=== PATIENT | female | born 1970 | race Caucasian/White ===

== ENCOUNTER 2017-10-07 20:23 | Emergency (ER) | payer SELFPAY ==
[~2017-10-07] VITALS: Ht 157.5 cm; Wt 111.0 kg
[~2017-10-07 20:23] MED LIST: ATENOLOL; [UNRECOGNIZED DRUG - OTHER]
[2017-10-08] MEDS ORDERED: KETOROLAC 60MG/2ML VIAL IM STA (00:22)
[2017-10-08 01:58] VITALS: BP 169/94
== END 2017-10-08 01:58 | disposition home or self-care (01) ==
LOC: ER 20:23
DX: M54.5 Low back pain (principal); M54.30 Sciatica, unspecified side; M25.561 Pain in right knee; M17.11 Unilateral primary osteoarthritis, right knee; I10 Essential (primary) hypertension; J45.909 Unspecified asthma, uncomplicated
CPT/HCPCS: 73562; 96372; 99284; J1885; Z7610

== ENCOUNTER 2018-10-24 17:19 | Emergency (ER) | payer MEDICAID ==
[~2018-10-24] VITALS: Ht 160 cm; Wt 112.0 kg
[2018-10-24] MEDS ORDERED: KETOROLAC 60MG/2ML VIAL IM ONE (19:00)
[2018-10-24] MEDS ORDERED: HYDROCODONE/ACETAMINOPHEN 10/325MG TABLET PO ONE (19:00)
[2018-10-24] MEDS ORDERED: CLONIDINE 0.2MG TABLET PO ONE (20:30)
[2018-10-24 21:03] VITALS: BP 148/65
== END 2018-10-24 21:38 | disposition home or self-care (01) ==
LOC: ER 17:19
DX: S80.01XA Contusion of right knee, initial encounter (principal); S90.31XA Contusion of right foot, initial encounter; I10 Essential (primary) hypertension; W01.0XXA Fall on same level from slipping, tripping and stumbling without subsequent striking against object, initial encounter; Y93.9 Activity, unspecified; Y92.009 Unspecified place in unspecified non-institutional (private) residence as the place of occurrence of the external cause
CPT/HCPCS: 73562; 73590; 73610; 73630; 96372; 99283; J1885; L1830; Z7610

== ENCOUNTER 2019-07-07 02:55 | Inpatient (IN) | payer OTHER, MEDICAID ==
[~2019-07-07] VITALS: Ht 157.5 cm; Wt 121.8 kg
[2019-07-07 03:42] LABS: BASOPHILS % 0.4 % (0.0-2.0); EOSINOPHILS % 1.6 % (0.0-5.0); HEMATOCRIT. 39.9 % (36.0-48.0); HEMOGLOBIN. 13.4 g/dL (12.0-16.0); LYMPHOCYTES % 32.3 % (20.0-50.0); MEAN CORPUSCULAR HEMOGLOBIN 28.9 pg (28.0-32.0); MEAN CORPUSCULAR VOLUME 86.4 fL (81.0-99.0); MEAN PLATELET VOLUME 9.4 fl (7.4-10.4); MONOCYTES % 3.4 % (2.0-8.0); NEUTROPHILS % 62.3 % (40.0-76.0); PLATELET 298 x1000/uL (130-400); RED BLOOD CELL COUNT 4.62 mill/uL (4.2-5.4); RED CELL DISTRIBUTION WIDTH 13.5 % (11.6-14.6)
[2019-07-07] MEDS ORDERED: CLONIDINE 0.2MG TABLET PO ONE (03:45)
[2019-07-07] MEDS ORDERED: ASPIRIN 81MG TABLET PO ONE (03:45)
[2019-07-07] MEDS ORDERED: LORAZEPAM 2MG/ML CPJ IV ONE (03:45)
[2019-07-07] MEDS ORDERED: ALPRAZOLAM 0.5 MG TABLET PO ONE (03:45)
[2019-07-07 03:49] LABS: CHLORIDE 106 mEq/L (98-107)
[2019-07-07] MEDS ORDERED: LABETALOL 5MG/ML SYR 20 MG/4 ML SYRINGE IV ONE (05:30)
[2019-07-07 08:45] VITALS: BP 128/69
[2019-07-07 08:46] VITALS: BP 128/69
[2019-07-07 12:00] VITALS: BP 142/62
[2019-07-07] MEDS ORDERED: GABA-529 MT (12:39)
[2019-07-07] MEDS ORDERED: METF-414 MT (12:39)
[2019-07-07] MEDS ORDERED: CRES10 MT (12:39)
[2019-07-07] MEDS ORDERED: LISI40TA4 MT (12:39)
[2019-07-07] MEDS ORDERED: IPRATROPIUM/ALBUTEROL 0.5-3(2.5)MG/3ML NEB HHN PRN (15:15)
[2019-07-07 16:00] VITALS: BP 157/78
[2019-07-07] MEDS ORDERED: NITROGLYCERIN 0.4MG TABLET SL SL PRN (16:30)
[2019-07-07] MEDS ORDERED: HYDRALAZINE 20MG/ML VIAL IV PRN (16:30)
[2019-07-07] MEDS ORDERED: ONDANSETRON HCL 4MG/2ML INJ IV PRN (16:30)
[2019-07-07] MEDS ORDERED: CLONIDINE 0.1MG TABLET PO PRN (16:30)
[2019-07-07] MEDS ORDERED: ACETAMINOPHEN 325MG TABLET PO PRN (16:30)
[2019-07-07] MEDS ORDERED: ATORVASTATIN CALCIUM 40MG TABLET PO NR (17:30)
[2019-07-07] MEDS ORDERED: DEXTROSE 50% WATER 50ML SYRINGE IV PRN (19:15)
[2019-07-07 20:00] VITALS: BP 146/64
[2019-07-07] MEDS: HEPARIN 5000 UNITS/ML VIAL SUBCUT SCH (20:51)
[2019-07-07] MEDS: INSULIN LISPRO 100 UNITS/ML SUBCUT SCH (21:00)
[2019-07-07] MEDS: BLOOD SUGAR DIAGNOSTIC STRIP TEST SCH (21:07)
[2019-07-07 23:20] LABS: *AMPHETAMINES SCREEN URINE NEGATIVE (NEGATIVE); *BARBITURATES SCREEN URINE NEGATIVE (NEGATIVE); *BENZODIAZEPINES SCREEN URINE NEGATIVE (NEGATIVE); *COCAINE SCREEN URINE NEGATIVE (NEGATIVE)
[2019-07-07 23:21] LABS: CANNABINOID URINE SCREEN NEGATIVE (NEGATIVE); METHADONE URINE SCREEN NEGATIVE (NEGATIVE); OPIATES URINE SCREEN NEGATIVE (NEGATIVE); PHENCYCLIDINE URINE SCREEN NEGATIVE (NEGATIVE)
[2019-07-08] VITALS (7 sets, daily range): BP systolic 138–161; BP diastolic 65–79
[2019-07-08 05:48] LABS: CHLORIDE 104 mEq/L (98-107)
[2019-07-08 05:56] LABS: LDL CHOLESTEROL 88 mg/dL (5-100)
[2019-07-08 06:00] LABS: HDL CHOLESTEROL 40 mg/dL (40-59)
[2019-07-08] MEDS: BLOOD SUGAR DIAGNOSTIC STRIP TEST SCH ×4 (06:01→21:26)
[2019-07-08 06:13] LABS: BASOPHILS % 0.4 % (0.0-2.0); EOSINOPHILS % 1.5 % (0.0-5.0); HEMATOCRIT. 40.1 % (36.0-48.0); HEMOGLOBIN. 13.6 g/dL (12.0-16.0); LYMPHOCYTES % 24.3 % (20.0-50.0); MEAN CORPUSCULAR HEMOGLOBIN 29.5 pg (28.0-32.0); MEAN CORPUSCULAR VOLUME 86.7 fL (81.0-99.0); MONOCYTES % 2.9 % (2.0-8.0); NEUTROPHILS % 70.9 % (40.0-76.0); PLATELET 294 x1000/uL (130-400); RED BLOOD CELL COUNT 4.62 mill/uL (4.2-5.4); RED CELL DISTRIBUTION WIDTH 13.8 % (11.6-14.6)
[2019-07-08] MEDS: INSULIN LISPRO 100 UNITS/ML SUBCUT SCH ×4 (06:21→21:00)
[2019-07-08] MEDS: HEPARIN 5000 UNITS/ML VIAL SUBCUT SCH ×2 (09:50→21:27)
[2019-07-08] MEDS ORDERED: AMLO5TAB88 MT (16:08)
[2019-07-08] MEDS ORDERED: SITA100T11 MT (16:10)
[2019-07-08] MEDS ORDERED: AMLODIPINE 5MG TABLET PO SCH (16:15)
[2019-07-08] MEDS ORDERED: ATORVASTATIN CALCIUM 10MG TABLET PO SCH (21:00)
[2019-07-08] MEDS: LISINOPRIL 20MG TABLET PO SCH (21:25)
[2019-07-09 04:00] VITALS: BP 143/70
[2019-07-09 06:11] LABS: BASOPHILS % 0.4 % (0.0-2.0); EOSINOPHILS % 1.4 % (0.0-5.0); HEMATOCRIT. 41.4 % (36.0-48.0); HEMOGLOBIN. 13.7 g/dL (12.0-16.0); LYMPHOCYTES % 23.2 % (20.0-50.0); MEAN CORPUSCULAR HEMOGLOBIN 28.6 pg (28.0-32.0); MEAN CORPUSCULAR VOLUME 86.7 fL (81.0-99.0); MEAN PLATELET VOLUME 9.7 fl (7.4-10.4); MONOCYTES % 3.8 % (2.0-8.0); NEUTROPHILS % 71.2 % (40.0-76.0); PLATELET 296 x1000/uL (130-400); RED BLOOD CELL COUNT 4.78 mill/uL (4.2-5.4); RED CELL DISTRIBUTION WIDTH 14.1 % (11.6-14.6)
[2019-07-09] MEDS: BLOOD SUGAR DIAGNOSTIC STRIP TEST SCH (06:14)
[2019-07-09] MEDS: INSULIN LISPRO 100 UNITS/ML SUBCUT SCH (06:30)
[2019-07-09 06:42] LABS: CHLORIDE 103 mEq/L (98-107)
[2019-07-09 07:58] VITALS: BP 176/85
[2019-07-09] MEDS: LISINOPRIL 20MG TABLET PO SCH (09:13)
[2019-07-09] MEDS: HEPARIN 5000 UNITS/ML VIAL SUBCUT SCH (09:14)
[2019-07-09] MEDS ORDERED: AMLODIPINE 5MG TABLET PO SCH (09:30)
[2019-07-09 10:57] VITALS: BP 163/88
[2019-07-09] MEDS ORDERED: AMLO5TAB88 PO (12:08)
[2019-07-09] MEDS ORDERED: HYDR-4134 MT (12:08)
[2019-07-09] MEDS ORDERED: HYDRALAZINE HCL 25MG TABLET PO SCH (14:00)
== END 2019-07-09 12:30 | disposition home or self-care (01) | DRG 189 ==
LOC: ER 02:55 → 7EST 05:35 → ENRESERV 07:39 → EDBEDREQ 08:09 → 7WST 07-08 23:05
PROVIDERS: ADMIT Internal Medicine; ATTEND Internal Medicine
DX: J96.00 Acute respiratory failure, unspecified whether with hypoxia or hypercapnia (principal); I16.1 Hypertensive emergency; Z68.42 Body mass index [BMI] 45.0-49.9, adult; I10 Essential (primary) hypertension; E11.9 Type 2 diabetes mellitus without complications; I20.9 Angina pectoris, unspecified; R79.89 Other specified abnormal findings of blood chemistry; R07.89 Other chest pain; E66.01 Morbid (severe) obesity due to excess calories; E78.5 Hyperlipidemia, unspecified; Z98.891 History of uterine scar from previous surgery; Z87.891 Personal history of nicotine dependence; Z86.73 Personal history of transient ischemic attack (TIA), and cerebral infarction without residual deficits; Z90.722 Acquired absence of ovaries, bilateral
CPT/HCPCS: 36415; 71045; 80053; 80061; 80305; 82728; 82962; 83036; 83605; 83615; 83735; 83880; 84145; 84484; 85025; 85379; 86140; 87635; 87804; 93005; 93306; 99291; J1644; J1815; J3490; U0002

== ENCOUNTER 2020-04-10 05:17 | Emergency (ER) | payer MEDICAID, OTHER ==
[~2020-04-10] VITALS: Ht 157.5 cm; Wt 110.0 kg
[~2020-04-10 05:17] MED LIST changes: +AMLO5TAB88 PO; -ATENOLOL; +CRES10 MT; +GABA-529 MT; +HYDR-4134 MT; +LISI40TA4 MT; +METF-414 MT; +SITA100T11 MT; -[UNRECOGNIZED DRUG - OTHER]
[2020-04-10 08:08] LABS: CHLORIDE 100 mEq/L (98-107)
[2020-04-10 08:38] LABS: BASOPHILS % 0.2 % (0.0-2.0); EOSINOPHILS % 0.1 % (0.0-5.0); HEMATOCRIT. 43.3 % (36.0-48.0); LYMPHOCYTES % 19.6 % (20.0-50.0); MEAN CORPUSCULAR VOLUME 83.5 fL (81.0-99.0); MEAN PLATELET VOLUME 10.4 fl (7.4-10.4); MONOCYTES % 6.9 % (2.0-8.0); NEUTROPHILS % 73.2 % (40.0-76.0); PLATELET 132 x1000/uL (130-400); RED BLOOD CELL COUNT 5.18 mill/uL (4.2-5.4)
[2020-04-10 10:45] VITALS: BP 181/104
[2020-04-10] MEDS ORDERED: KETOROLAC 30MG/ML VIAL IV ONE (10:45)
== END 2020-04-11 06:18 | disposition home or self-care (01) ==
LOC: ER 05:17
DX: M79.18 Myalgia, other site (principal); R11.0 Nausea; E11.9 Type 2 diabetes mellitus without complications; I10 Essential (primary) hypertension; Z86.73 Personal history of transient ischemic attack (TIA), and cerebral infarction without residual deficits; Z98.890 Other specified postprocedural states; Z79.899 Other long term (current) drug therapy; Z20.822 Contact with and (suspected) exposure to COVID-19
CPT/HCPCS: 36415; 71045; 80053; 85025; 87635; 96374; 99284; C9803

== ENCOUNTER 2021-07-03 16:04 | Emergency (ER) | payer MEDICAID ==
[~2021-07-03] VITALS: Ht 157.5 cm; Wt 113.0 kg
[~2021-07-03 16:04] MED LIST changes: +LISI40TA13 MT; -LISI40TA4 MT
[2021-07-03] MEDS ORDERED: HYDROCODONE/ACETAMINOPHEN 5/325MG TABLET PO ONE (17:15)
[2021-07-03] MEDS ORDERED: IBUP-2029 MT (19:51)
[2021-07-03] MEDS ORDERED: HYDR-4001 MT ×2 (19:51→19:56)
[2021-07-03] MEDS ORDERED: KETOROLAC 15MG/ML VIAL IM NR (20:00)
[2021-07-03 20:13] VITALS: BP 196/63
== END 2021-07-03 20:40 | disposition home or self-care (01) ==
LOC: ER 16:04
DX: M54.9 Dorsalgia, unspecified (principal); M54.2 Cervicalgia; I10 Essential (primary) hypertension; E11.9 Type 2 diabetes mellitus without complications; Z98.890 Other specified postprocedural states; W01.0XXA Fall on same level from slipping, tripping and stumbling without subsequent striking against object, initial encounter; Y93.89 Activity, other specified; Y92.89 Other specified places as the place of occurrence of the external cause; Y99.8 Other external cause status
CPT/HCPCS: 70450; 70490; 71250; 73560; 96372; 99284; J1885

== ENCOUNTER 2023-01-18 22:40 | Emergency (ER) | payer MEDICAID ==
[~2023-01-18] VITALS: Ht 152.4 cm; Wt 120.0 kg
[~2023-01-18 22:40] MED LIST changes: +IBUP-2029 MT
[2023-01-18 22:51] VITALS: BP 166/76; PULSE 94; RESP 16; TEMP 98.3; O2SAT 98
[2023-01-19] MEDS ORDERED: HYDR-4001 MT (01:09)
[2023-01-19] MEDS ORDERED: IBUP-1525 MT (01:09)
[2023-01-19] MEDS ORDERED: ACETAMINOPHEN 325MG TABLET PO ONE (02:30)
== END 2023-01-19 02:58 | disposition home or self-care (01) ==
LOC: ER 22:43
DX: M25.462 Effusion, left knee (principal); J45.909 Unspecified asthma, uncomplicated; E11.9 Type 2 diabetes mellitus without complications; I10 Essential (primary) hypertension; Z98.890 Other specified postprocedural states
CPT/HCPCS: 73560; 99283; 29505; Z7610; L1830